=== PATIENT | female | born 1955 | race Hispanic/Latino ===

== ENCOUNTER 2022-01-21 08:36 | Day surgery (SDC) | payer MEDICARE ==
[~2022-01-21] VITALS: Ht 162.6 cm; Wt 88.5 kg
[~2022-01-21 08:36] MED LIST: MOBIC7.5 M1 PO; TYLENOL 8 HOUR650 MG PO; ZESTRIL10 M1 PO
[2022-01-21 11:20] VITALS: BP 136/79
== END 2022-01-21 11:36 | disposition home or self-care (01) ==
LOC: ENDO 08:36
PROVIDERS: ATTEND Surgery
PROC: 0DJD8ZZ Inspection of Lower Intestinal Tract, Via Natural or Artificial Opening Endoscopic (ICD-10-PCS; principal; 2022-01-21)
DX: K64.8 Other hemorrhoids (principal); K64.4 Residual hemorrhoidal skin tags; I10 Essential (primary) hypertension

== ENCOUNTER 2022-09-25 19:21 | Observation (INO) | payer MEDICARE ==
[~2022-09-25] VITALS: Ht 162.6 cm; Wt 96.8 kg
[2022-09-25] VITALS (12 sets, daily range): BP systolic 84–112; BP diastolic 42–68
[2022-09-25 21:40] LABS: BASO% 0.4 % (0-3); EOS% 0.4 % (0-8); HEMATOCRIT 42.6 % (37.0-47.0); IMMATURE GRANULOCYTES 0.9 % (0.0-5.0); LYMPH% 23.7 % (15-41); MEAN CORPUSCULAR HGB 27.5 pG CALC (26.0-32.0); MEAN CORPUSCULAR HGB CONC 32.9 g/dL CAL (32.0-36.0); MONO% 10.8 % (2-13); NEUT# 3.57 thou/uL (2.00-7.15); NEUT% 63.8 % (42-76); RED BLOOD COUNT 5.1 mill/uL (4.20-5.60); RED CELL DISTRI WIDTH 13.4 % (11.5-15.5)
[2022-09-25 21:41] LABS: MEAN CELL VOLUME 83.5 fL CALC (80.0-100.0)
[2022-09-25 21:51] LABS: ALBUMIN 3.9 g/dL (3.2-5.0); ALKALINE PHOSPHATASE 66 u/l (38-126); BILIRUBIN, TOTAL 0.6 mg/dL (0.02-1.3); CARBON DIOXIDE 22 mmol/l (22-30); POTASSIUM 3.7 mmol/l (3.5-5.1); SGOT/AST 26 u/l (9-36); TOTAL PROTEIN 7.1 g/dL (6.3-8.2)
[2022-09-25 21:53] LABS: ANION GAP 17 (6-22 (CALC)); BUN 65 mg/dL (8-23); BUN/CREATININE RATIO 24 (12-20 (CALC)); CHLORIDE 94 mmol/l (95-108); CREATININE 2.7 mg/dL (0.5-1.0); GFR FOR AFR.AMER. 21 ML/MIN (>=60 (CALC)); GFR OTHER RACES 18 ML/MIN (>=60 (CALC)); SODIUM 129 mmol/l (137-146)
[2022-09-26 00:09] VITALS: BP 118/64
[2022-09-26 04:52] VITALS: BP 97/61
[2022-09-26 06:46] VITALS: BP 111/59
[2022-09-26 06:50] VITALS: BP 111/59
[2022-09-26 08:35] LABS: POTASSIUM 3.7 mmol/l (3.5-5.1); TOTAL PROTEIN 5.8 g/dL (6.3-8.2)
[2022-09-26 08:38] LABS: CREATININE 1.3 mg/dL (0.5-1.0)
[2022-09-26 08:39] LABS: ALBUMIN 3.1 g/dL (3.2-5.0); BILIRUBIN, TOTAL 0.3 mg/dL (0.02-1.3)
[2022-09-26 09:48] LABS: URINE BILIRUBIN - DIPSTICK NEGATIVE (NEGATIVE); URINE BLOOD DIPSTICK SMALL (NEGATIVE); URINE COLOR YELLOW; URINE GLUCOSE - DIPSTICK NEGATIVE (NEGATIVE); URINE KETONE NEGATIVE (NEGATIVE); URINE LEUK ESTERASE SMALL (NEGATIVE); URINE NITRITE - DIPSTICK NEGATIVE (Negative); URINE PROTEIN - DIPSTICK NEGATIVE (NEG-TRACE); URINE UROBILINOGEN - DIPSTICK 0.2 E.U./dL (0.2)
[2022-09-26 09:57] LABS: URINE RBC 0-2 RBC/hpf (0-5)
[2022-09-26 09:58] LABS: URINE BACTERIA FEW hpf; URINE SQUAMOUS EPITHELIAL CELL FEW EPI/hpf (0-FEW); URINE TRANSITIONAL EPI. CELLS FEW hpf
[2022-09-26 10:41] VITALS: BP 97/54
== END 2022-09-26 14:22 | disposition home or self-care (01) ==
LOC: ED 19:21 → ED-I 22:08 → ED 22:21 → MS2 22:34
PROVIDERS: Emergency Medicine; Nurse Practitioner Family; ADMIT Internal Medicine; ATTEND Internal Medicine
DX: E86.0 Dehydration (principal); N17.9 Acute kidney failure, unspecified; I95.9 Hypotension, unspecified; B37.0 Candidal stomatitis; I10 Essential (primary) hypertension; G47.30 Sleep apnea, unspecified; Z20.822 Contact with and (suspected) exposure to COVID-19

== ENCOUNTER 2024-07-15 00:24 | Emergency (ER) | payer MEDICARE ==
[~2024-07-15] VITALS: Ht 162.6 cm; Wt 95.0 kg
[2024-07-15] VITALS (8 sets, daily range): BP systolic 115–156; BP diastolic 69–78
[2024-07-15] MEDS ORDERED: ASPIRIN 81 MG/TAB PO ONE (00:45)
[2024-07-15] MEDS ORDERED: LIDOCAINE VISCOUS 2% 15 ML UDC PO ONE (00:45)
[2024-07-15] MEDS ORDERED: MORPHINE SULFATE 4 MG/ML VIAL IV ONE (00:45)
[2024-07-15] MEDS ORDERED: ALUM & MAG HYDROX-SIMETHICONE 30 ML PO ONE (00:45)
[2024-07-15] MEDS ORDERED: ACETAMINOPHEN 500 MG TAB PO ONE (00:45)
[2024-07-15 01:00] LABS: BASO% 0.3 % (0-3); EOS% 1.3 % (0-8); HEMATOCRIT 42.3 % (37.0-47.0); HEMOGLOBIN 13.3 g/dl (12.0-16.0); IMMATURE GRANULOCYTES 0.1 % (0.0-5.0); LYMPH% 23.2 % (15-41); MEAN CORPUSCULAR HGB 25.8 pG CALC (26.0-32.0); MEAN CORPUSCULAR HGB CONC 31.4 g/dL CAL (32.0-36.0); MONO% 6.8 % (2-13); NEUT# 6.29 thou/uL (2.00-7.15); NEUT% 68.3 % (42-76); RED BLOOD COUNT 5.15 mill/uL (4.20-5.60); RED CELL DISTRI WIDTH 14.4 % (11.5-15.5)
[2024-07-15 01:01] LABS: MEAN CELL VOLUME 82.1 fL CALC (80.0-100.0)
[2024-07-15 01:11] LABS: ALBUMIN 4.4 g/dL (3.2-5.0); ALKALINE PHOSPHATASE 85 u/l (38-126); ANION GAP 13 (6-22 (CALC)); BILIRUBIN, TOTAL 1.3 mg/dL (0.02-1.3); BUN 11 mg/dL (8-23); BUN/CREATININE RATIO 21 (12-20 (CALC)); CARBON DIOXIDE 26 mmol/l (22-30); CHLORIDE 106 mmol/l (95-108); CREATININE 0.6 mg/dL (0.5-1.0); ESTIMATED GFR 98 ML/MIN (>=90 (CALC)); LIPASE 196 u/l (23-300); POTASSIUM 3.6 mmol/l (3.5-5.1); SGOT/AST 205 u/l (9-36); SODIUM 141 mmol/l (137-146); TOTAL PROTEIN 7.6 g/dL (6.3-8.2)
[2024-07-15] MEDS ORDERED: ZOLPIDEM TARTRA10 MG PO (01:22)
[2024-07-15] MEDS ORDERED: TOPROL XL25 MG PO (01:22)
[2024-07-15 01:24] LABS: ACT PARTIAL THROMBO TIME 27.6 SECONDS (20.0-32.5); D-DIMER 4.09 mg/L (0.19-0.60)
[2024-07-15 01:37] LABS: PROTHROMBIN TIME 10.7 SECONDS (9.0-12.5)
[2024-07-15] MEDS ORDERED: PEPCID20 MG PO (03:40)
== END 2024-07-15 03:57 | disposition home or self-care (01) ==
LOC: ED 00:24
PROVIDERS: Family Medicine
DX: R07.9 Chest pain, unspecified (principal); K20.90 Esophagitis, unspecified without bleeding; I10 Essential (primary) hypertension; G47.30 Sleep apnea, unspecified
CPT/HCPCS: Q9967